=== PATIENT | female | born 1945 ===

== ENCOUNTER 2022-01-10 05:35 | Day surgery (SDC) | payer OTHER ==
[~2022-01-10 05:35] MED LIST: CHILDREN'S ASPI81 MG PO; GLUMETZA500 MG PO; ISORBIDE PO; SYNTHROID112 MCG PO; TOPROL XL100 M1 PO
== END 2022-01-10 15:45 | disposition home or self-care (01) ==
LOC: CIR.AMB 05:35
PROVIDERS: ATTEND Orthopaedic Surgery Hand Surgery
DX: S52.532A Colles' fracture of left radius, initial encounter for closed fracture (principal); I25.10 Atherosclerotic heart disease of native coronary artery without angina pectoris; Z95.5 Presence of coronary angioplasty implant and graft; I10 Essential (primary) hypertension; E11.9 Type 2 diabetes mellitus without complications; Z79.84 Long term (current) use of oral hypoglycemic drugs; E03.9 Hypothyroidism, unspecified; M19.90 Unspecified osteoarthritis, unspecified site; E66.9 Obesity, unspecified
CPT/HCPCS: 25609; L8699